=== PATIENT | male | born 1975 | race Caucasian/White ===

== ENCOUNTER 2021-11-15 14:26 | Emergency (ER) | payer BC ==
[~2021-11-15] VITALS: Ht 180.3 cm; Wt 89.8 kg
--- NOTE | 2021-11-15 14:35 | NUR ---
CAME IN FOR MID CHEST PAIN STARTED 9AM. CONSCIOUS, COHERENT IN PAIN
[2021-11-15] MEDS ORDERED: IOHEXOL-300 100 ML VIAL IV ONE (14:50)
[2021-11-15] MEDS ORDERED: MORPHINE SULFATE INJ 4 MG/ML DISP.SYRIN ONE (14:50)
[2021-11-15] MEDS ORDERED: ONDANSETRON HCL/PF 4 MG/2 ML VIAL ONE ×2 (14:50→19:01)
[2021-11-15 14:55] LABS: BASOPHILS # (AUTO) 0.1 K/uL (0.0-0.2); BASOPHILS % (AUTO) 0.6 % (0.0-2.0); EOSINOPHILS % (AUTO) 0.2 % (0.0-6.0); HEMATOCRIT 47 % (39-51); HEMOGLOBIN 15.6 g/dL (13.5-17.5); LYMPHOCYTES # (AUTO) 2.1 K/uL (0.8-4.8); LYMPHOCYTES % (AUTO) 14.9 % (20.0-44.0); MEAN CORPUSCULAR HGB CONC 33 g/dl (31.0-36.0); MEAN CORPUSCULAR VOLUME 88 fL (80-96); MONOCYTES # (AUTO) 0.4 K/uL (0.1-1.30); MONOCYTES % (AUTO) 2.8 % (2.0-12.0); NEUTROPHILS # (AUTO) 11.3 K/uL (1.8-8.9); NEUTROPHILS % (AUTO) 81.5 % (43.0-81.0); PLATELET COUNT (AUTO) 559 K/uL (150-450); RED BLOOD CELL COUNT(AUTO) 5.34 MIL/uL (4.5-6.0); WHITE BLOOD COUNT (AUTO) 13.8 K/uL (4.3-11.0)
--- NOTE | 2021-11-15 14:57 | NUR ---
WHEELED OUT VIA [facility] FOR CT SCAN
[2021-11-15] MEDS ORDERED: ONDANSETRON HCL/PF 4 MG/2 ML VIAL IVP ONE (15:00)
[2021-11-15] MEDS ORDERED: MORPHINE SULFATE INJ 2 MG/ML DISP.SYRIN IV ONE (15:00)
[2021-11-15 15:08] LABS: CALCIUM, SERUM 9.4 mg/dL (8.5-10.1); CARBON DIOXIDE 22 mmol/L (21-32); CHLORIDE 102 mmol/L (98-107); CREATININE 1.2 mg/dL (0.6-1.3); GLUCOSE 178 mg/dL (74-106); POTASSIUM 3.6 mmol/L (3.5-5.1); SODIUM SERUM 137 mmol/L (136-145); UREA NITROGEN, BLOOD 15 mg/dL (7-18)
[2021-11-15 15:14] LABS: ALANINE AMINOTRANSFERASE 36 U/L (12-78); ALBUMIN 4.1 g/dL (3.4-5.0); ALKALINE PHOSPHATASE 64 U/L (46-116); ASPARTATE AMINOTRANSFERASE 17 U/L (15-37); BILIRUBIN,DIRECT 0.1 mg/dL (0.0-0.2); BILIRUBIN,TOTAL 0.3 mg/dL (0.2-1.0); LIPASE 122 U/L (73-393); TOTAL PROTEIN, SERUM 8.6 g/dL (6.4-8.2)
[2021-11-15] MEDS ORDERED: NAPR-1164 PO (18:28)
[2021-11-15] MEDS ORDERED: TRAM50TA2 PO (18:28)
--- NOTE | 2021-11-15 18:39 | NUR ---
PATIENT C/O NAUSEA AND VOMITING. MD PINTO INFORMED AND REVIEWED PATIENT AT BED SIDE
[2021-11-15] MEDS ORDERED: ONDANSETRON HCL/PF - ER 4 MG/2 ML VIAL IV ONE (19:00)
[2021-11-15 19:21] VITALS: BP 149/76
== END 2021-11-15 19:24 | disposition home or self-care (01) ==
LOC: ER 14:30
DX: R10.12 Left upper quadrant pain (principal); K42.9 Umbilical hernia without obstruction or gangrene
CPT/HCPCS: 36415; 74177; 80048; 80076; 83690; 84484; 85025; 93005; 96374; 96375; 96376; 99285; J2270; J2405 ×2; Q9967